=== PATIENT | female | born 1970 | race American Indian/Alaskan Native ===

== ENCOUNTER 2016-11-26 13:31 | Outpatient (CLI) | payer BC ==
--- NOTE | 2016-11-26 15:07 | Mammography Report ---
Screening mammogram: CC and lateral tomography with 2-D images of both breasts are obtained and compared to prior exams dating 2014 and 2016. The patient has a heterogeneously dense fibroglandular pattern. There are 2 discrete nodules in the superolateral right breast. 2 additional circumscribed nodules are noted in the medial breast on tomography. A single circumscribed nodule is present in the left breast. The 2-D images bilaterally are essentially unchanged from the 2016 exam and a couple of right breast nodules noted in 2014 are no longer present. CAD used. Impression: The 2-D images are stable. The additional nodules seen on right breast tomography have no suspicious characteristics. Recommendation: Annual mammogram followup.
== END 2016-11-26 13:32 | disposition home or self-care (01) ==
LOC: MAMMO 13:31
DX: Z12.31 Encounter for screening mammogram for malignant neoplasm of breast (principal)
CPT/HCPCS: 77063; G0202; 77067